=== PATIENT | female | born 1970 | race Caucasian/White ===

== ENCOUNTER 2018-04-20 14:26 | Emergency (ER) | payer OTHER ==
[~2018-04-20] VITALS: Ht 167.6 cm; Wt 83.5 kg
[~2018-04-20 14:26] MED LIST: FLAGYL; FLEXERIL PO; NORCO 5-325 TA1 EACH PO; OMEPRAZOLE; PROVENTIL
[2018-04-20] MEDS ORDERED: CBD OIL PO (14:52)
[2018-04-20] MEDS ORDERED: HYDROCHLOROTH12.5 M1 PO (14:52)
[2018-04-20 15:31] LABS: ABSOLUTE LYMPHOCYTES 1.2 thou/uL (0.8-5.3); ABSOLUTE MONOCYTES 0.5 thou/uL (0.0-1.2); ABSOLUTE NEUTROPHILS 4.3 thou/uL (1.6-8.1); BASOPHILS 0.4 %; EOSINOPHILS 0.2 %; HEMATOCRIT 40.7 % (37.0-47.0); HEMOGLOBIN 13.9 gm/dL (12.0-15.0); LYMPHOCYTES 19.9 %; MCH 30.4 pg (26.0-34.0); MCHC 34.2 g/dL (28.0-37.0); MCV 88.9 fL (80.0-100.0); MPV 7.2 fl. (7.2-11.1); NUCLEATED RBCS 0 /100WBC; PLATELET COUNT* 266 thou/uL (150-400); POLYS 71.5 %; RBC 4.58 mil/uL (4.20-5.00); RDW-CV 13.3 % (10.5-14.5)
[2018-04-20 15:51] LABS: ANION GAP 12 mmol/L (7-16); BUN 14 mg/dL (7-18); CALCIUM 9.5 mg/dL (8.5-10.1); CHLORIDE 100 mmol/L (98-107); CO2 26 mmol/L (21-32); CREATININE 0.9 mg/dL (0.6-1.3); GLUCOSE 125 mg/dL (70-99); POTASSIUM 3.2 mmol/L (3.5-5.1); SODIUM 138 mmol/L (136-145)
[2018-04-20 15:56] LABS: ALBUMIN 4.2 g/dL (3.4-5.0); ALKALINE PHOSPHATASE 60 U/L (46-116); MAGNESIUM 2.2 mg/dL (1.8-2.4); SGOT 15 U/L (15-37); SGPT 31 U/L (30-65); TOTAL BILIRUBIN 0.4 mg/dL (<0.1-1.0); TOTAL PROTEIN 8.4 g/dL (6.4-8.2); TROPONIN-I LEVEL <0.06 ng/mL (<0.06)
[2018-04-20] MEDS ORDERED: GABAPENTIN 100100 MG PO (16:27)
[2018-04-20] MEDS ORDERED: ATIVAN0.5 MG PO (16:27)
[2018-04-20] MEDS ORDERED: FLEXERIL PO (17:07)
[2018-04-20 17:12] VITALS: BP 127/83
--- NOTE | 2018-04-21 10:22 | EKG ---
[place] [address] ELECTROCARDIOGRAM REPORT Name: SAY KELSEY Room: [facility]#: [id number] Admission: 04/20/18 Attend Phys: Discharge: 04/20/18 Date of : 72 Report #: [id number] THIS REPORT FOR: //name// [facility] ED Test Date: 2018-04-20 Test Time: 15:15:59 Pat Name: SAY KELSEY Department: Room: Gender: F [employer] Account Executive: ELINOR : 1970 Requested By: Naila Smith Order Number: [id number] MD: Morgan Ayoub Measurements Intervals [place] Rate: 107 P: 36 MT: 143 QRS: 85 QRSD: 107 T: 5 QT: 352 QTc: 470 Interpretive Statements Sinus tachycardia Abnormal R-wave progression, late transition Abnormal inferior Q waves No previous ECG available for comparison Electronically Signed On 04-21-2018 10:21:55 [employer] by Morgan Ayoub [email or web address] <ELECTRONICALLY SIGNED> By: Morgan Ayoub MD, [facility] 04/21/18 1021 D: [id number] Morgan Ayoub MD, FACC /EPI
== END 2018-04-20 17:13 | disposition home or self-care (01) ==
LOC: M.ERS 14:26
PROVIDERS: Nurse Practitioner Family
DX: G62.9 Polyneuropathy, unspecified (principal); F41.9 Anxiety disorder, unspecified; J45.909 Unspecified asthma, uncomplicated; I10 Essential (primary) hypertension; K21.9 Gastro-esophageal reflux disease without esophagitis; Z88.0 Allergy status to penicillin; Z88.5 Allergy status to narcotic agent; Z88.8 Allergy status to other drugs, medicaments and biological substances

== ENCOUNTER → 2018-05-10 | Outpatient (CLI) | payer OTHER ==
[~2018-05-10] MED LIST changes: +ATIVAN0.5 MG PO; +CBD OIL PO; +GABAPENTIN 100100 MG PO; +HYDROCHLOROTH12.5 M1 PO
== END ==
LOC: M.MRI 15:59
DX: M51.27 Other intervertebral disc displacement, lumbosacral region (principal); M54.16 Radiculopathy, lumbar region; R20.2 Paresthesia of skin

== ENCOUNTER → 2018-07-18 | Outpatient (CLI) | payer OTHER ==
--- NOTE | 2018-07-18 09:54 | 2DMMODE ---
[place] [address] 2 D/M-MODE ECHOCARDIOGRAM Name: SAY KELSEY GLENN Room: [facility]#: [id number] Admission: 07/18/18 Attend Phys: Cliff Corona, Discharge: Date of : 72 Date of Service: 07/18/18 0953 Report #: [id number] THIS REPORT FOR: //name// APPROVED REPORT Study performed: 07/18/2018 08:13:18 EXAM: Comprehensive 2D, Doppler, and color-flow Echocardiogram Patient Location: Out-Patient BSA: 1.86 HR: 95 bpm BP: 140/82 mmHg Other Information Study Quality: Good Indications Murmur 2D Dimensions IVSd: 10.24 (7-11mm) LVOT Diam: 20.86 (18-24mm) LVDd: 49.13 mm PWd: 9.97 (7-11mm) Ascending Ao: 26.48 (22-36mm) LVDs: 31.89 (25-40mm) Aortic Root: 25.00 mm Volumes Left Atrial Volume (Systole) LA ESV Index: 16.90 mL/m2 Aortic Valve AoV Peak Jimi.: 1.53 m/s AO Peak Gr.: 9.41 mmHg LVOT Max P.04 mmHg AO Mean Gr.: 5.28 mmHg LVOT Mean P.24 mmHg LVOT Max V: 1.01 m/s AO V2 VTI: 28.96 cm LVOT Mean V: 0.70 m/s DELFINA (VTI): 2.59 cm2 LVOT V1 VTI: 21.96 cm Mitral Valve E/A Ratio: 0.76 MV Decel. Time: 161.61 ms MV E Max Jimi.: 0.88 m/s MV PHT: 46.87 ms MVA (PHT): 4.69 [place]2 [place] [address] 2 D/M-MODE ECHOCARDIOGRAM Name: SAY KELSEY GLENN Room: [facility]#: [id number] Admission: 07/18/18 Attend Phys: Cliff Corona, Discharge: Date of : 72 Date of Service: 07/18/18 0953 Report #: [id number] TDI E/Lateral E': 8.00 E/Medial E': 8.80 Medial E' Jimi.: 0.10 m/s Lateral E' Jimi.: 0.11 m/s Pulmonary Valve PV Peak Jimi.: 0.94 m/s PV Peak Gr.: 3.57 mmHg Left Ventricle The left ventricle is normal size. There is normal LV segmental wall motion. There is normal left ventricular wall thickness. Left ventricular systolic function is normal. The left ventricular ejection fraction is within the normal range. LVEF is 55-60%. Grade I - abnormal relaxation pattern. Right Ventricle The right ventricle is normal size. The right ventricular systolic function is normal. Atria The left atrium size is normal. The right atrium size is normal. Aortic Valve The aortic valve is normal in structure. No aortic regurgitation is present. There is no aortic valvular stenosis. Mitral Valve The mitral valve is normal in structure. There is no mitral valve regurgitation noted. No evidence of mitral valve stenosis. Tricuspid Valve The tricuspid valve is normal in structure. There is no tricuspid valve regurgitation noted. Pulmonic Valve The pulmonary valve is normal in structure. There is no pulmonic valvular regurgitation. Great Vessels The aortic root is normal in size. IVC is normal in size and collapses >50% with inspiration. Pericardium There is [place] [address] 2 D/M-MODE ECHOCARDIOGRAM Name: SAY KELSEY GLENN Room: [facility]#: [id number] Admission: 07/18/18 Attend Phys: Cliff Corona, Discharge: Date of : 72 Date of Service: 07/18/18 0953 Report #: [id number] <Conclusion> The left ventricle is normal size. There is normal left ventricular wall thickness. Left ventricular systolic function is normal. The left ventricular ejection fraction is within the normal range. LVEF is 55-60%. Grade I - abnormal relaxation pattern. The right ventricle is normal size. The left atrium size is normal. The aortic valve is normal in structure. The mitral valve is normal in structure. The tricuspid valve is normal in structure. IVC is normal in size and collapses >50% with inspiration. There is no pericardial effusion. There is normal LV segmental wall motion. <ELECTRONICALLY SIGNED> By: Quan May MD, FACC 07/18/18 0953 0953 Quan May MD, FACC /INF
== END ==
LOC: M.CT 07:46
DX: Z13.6 Encounter for screening for cardiovascular disorders (principal); R01.1 Cardiac murmur, unspecified; Z88.5 Allergy status to narcotic agent; Z88.0 Allergy status to penicillin; Z88.8 Allergy status to other drugs, medicaments and biological substances

== ENCOUNTER → 2018-07-18 | Outpatient (CLI) | payer OTHER | LOC: M.CRD 08:00 | DX: R01.1 Cardiac murmur, unspecified (principal); Z88.5 Allergy status to narcotic agent; Z88.8 Allergy status to other drugs, medicaments and biological substances; Z88.0 Allergy status to penicillin ==

== ENCOUNTER → 2018-09-06 | Outpatient (CLI) | payer OTHER ==
[2018-09-07 05:12] LABS: IgA 215 mg/dL (87-352); IgG 1270 mg/dL (700-1600); IgM 79 mg/dL (26-217)
[2018-09-08 14:10] LABS: ANA INTERPRETATION Negative (Negative); ANTI-SSA <0.2 AI (0.0-0.9)
== END ==
LOC: M.MRI 07-29 16:30
PROVIDERS: Psychiatry & Neurology Neuromuscular Medicine
DX: R20.2 Paresthesia of skin (principal); F41.9 Anxiety disorder, unspecified